=== PATIENT | male | born 1960 | race Caucasian/White ===

== ENCOUNTER 2018-10-04 15:56 | Emergency (ER) | payer OTHER ==
[2018-10-04 16:06] VITALS: TEMP 98.3
--- NOTE | 2018-10-04 17:08 | XR ---
EXAMINATION TYPE: XR chest 2V DATE OF EXAM: 10/04/2018 COMPARISON: NONE HISTORY: Cough and fever TECHNIQUE: Frontal and lateral views of the chest are obtained. FINDINGS: Heart and mediastinum are normal. Lungs are clear. Diaphragm is normal. Bony thorax appear s normal. IMPRESSION: Normal chest.
--- NOTE | 2018-10-04 17:31 | ED ---
URI HPI - General Chief Complaint: Upper Respiratory Infection Stated Complaint: Cough/fever Time Seen by Provider: 10/04/18 16:11 Source: patient Mode of arrival: ambulatory Limitations: no limitations - History of Present Illness Initial Comments: The patient is a 58-year-old male with past medical history of multiple sclerosis who presents to the emergency department with complaint of a cough and low-grade fever for the past 3-4 days. He has had contact with his grandson who has been suffering from an upper respiratory infection. The grandson recently saw his primary care physician was placed on an antibiotic. Patient presents and is concerned that he may need antibiotics as well. The cough is productive. He is producing tilley phlegm. Denies hemoptysis. Admits to chest wall pain when he is coughing in a bronchospastic cough. Denies shortness of breath. No pleuritic chest pain. No ripping or tearing sensation to his back. No history of coronary disease. Denies exertional dyspnea. There are no alleviating, precipitating or modifying factors - Related Data Home Medications Medication Instructions Recorded Confirmed Naproxen Sodium [Aleve] 440 mg PO Q12HR PRN 10/04/18 10/04/18 Previous Rx's Medication Instructions Recorded Albuterol Sulfate [Proair Hfa] 1 - 2 puff INHALATION Q4HR PRN #1 10/04/18 inhaler Azithromycin [Zithromax Z-pack] 250 mg PO DIRECTED #6 tab 10/04/18 predniSONE 20 mg PO BID 5 Days #10 tab 10/04/18 Allergies Allergy/AdvReac Type Severity Reaction Status Date / Time Penicillins Allergy Unknown Verified 10/04/18 16:34 Review of Systems ROS Statement: Those systems with pertinent positive or pertinent negative responses have been documented in the HPI. ROS Other: All systems not noted in ROS Statement are negative. Past Medical History Additional Past Medical History / Comment(s): multiple sclerosis History of Any Multi-Drug Resistant Organisms: None Reported Past Surgical History: No Surgical Hx Reported Past Psychological History: No Psychological Hx Reported Smoking Status: Never smoker Past Alcohol Use History: None Reported Past Drug Use History: None Reported General Exam Limitations: no limitations General appearance: alert, in no apparent distress Head exam: Present: atraumatic, normocephalic, normal inspection Eye exam: Present: normal appearance, PERRL, EOMI. Absent: scleral icterus, conjunctival injection, periorbital swelling ENT exam: Present: normal exam, mucous membranes moist Neck exam: Present: normal inspection. Absent: tenderness, meningismus, lymphadenopathy Respiratory exam: Present: normal lung sounds bilaterally. Absent: respiratory distress, wheezes, rales, rhonchi, stridor Cardiovascular Exam: Present: regular rate, normal rhythm, normal heart sounds. Absent: systolic murmur, diastolic murmur, rubs, gallop, clicks GI/Abdominal exam: Present: soft, normal bowel sounds. Absent: distended, tenderness, guarding, rebound, rigid Extremities exam: Present: normal inspection, full ROM, normal capillary refill. Absent: tenderness, pedal edema, joint swelling, calf tenderness Back exam: Present: normal inspection Neurological exam: Present: alert, oriented X3, CN II-XII intact Psychiatric exam: Present: normal affect, normal mood Skin exam: Present: warm, dry, intact, normal color. Absent: rash Course Vital Signs 10/04/18 10/04/18 16:03 18:09 Temperature 98.3 F Pulse Rate 83 78 Respiratory 16 18 Rate Blood Pressure 130/79 131/88 O2 Sat by Pulse 99 97 Oximetry Medical Decision Making - Medical Decision Making The patient was placed into room 19. He did discuss the diagnosis, differential diagnosis and treatment options. I did recommend an EKG and a chest x-ray. I did offer laboratory studies and influenza testing. The patient did opt for an EKG and chest x-ray. Upon return results I did discuss them with the patient. His EKG does demonstrate a normal sinus rhythm with an inverted T-wave in lead 3. He'll be discharged home and given a prescription for prednisone and an albuterol inhaler. I also provided the patient with a Z-João. He is to take the medications as directed. If he has fevers at home he is to take Tylenol. He needs to follow up with his primary care physician in 2 days for reevaluation. Should he have any new or worsening symptoms he should return to the emergency department. Patient was discharged home in stable condition - Differential Diagnosis Acute cough, upper respiratory infection, viral syndrome, bronchitis - EKG Data EKG shows normal: sinus rhythm Rate: normal When compared to previous EKG there are: previous EKG unavailable - Radiology Data Radiology results: report reviewed Chest x-ray demonstrates no acute findings Disposition Clinical Impression: Viral infection, Bronchitis, Upper respiratory infection Disposition: HOME SELF-CARE Condition: Good Instructions (If sedation given, give patient instructions): Upper Respiratory Infection (ED) Additional Instructions: Please follow up with your primary care physician in 2 days. Do not take any NSAIDs with the steroids. Return to the ED for any new or worsening symptoms. Your prescriptions were sent to [facility] Prescriptions: predniSONE 20 mg PO BID 5 Days #10 tab Albuterol Sulfate [Proair Hfa] 1 - 2 puff INHALATION Q4HR PRN #1 inhaler PRN Reason: difficulty in breathing Azithromycin [Zithromax Z-pack] 250 mg PO DIRECTED #6 tab Is patient prescribed a controlled substance at d/c from ED?: No Referrals: None,Stated [Primary Care Provider] - 1-2 days Time of Disposition: 17:31
[2018-10-04 18:10] VITALS: BP 131/88; PULSE 78; RESP 18
== END 2018-10-04 18:09 | disposition home or self-care (01) ==
LOC: EC 15:56
DX: J40 Bronchitis, not specified as acute or chronic (principal); J06.9 Acute upper respiratory infection, unspecified; G35 Multiple sclerosis; Z88.0 Allergy status to penicillin
CPT/HCPCS: 71046; 99283

== ENCOUNTER 2019-04-17 07:57 | Day surgery (SDC) | payer OTHER ==
[2019-04-13 15:14] VITALS: BMI 24.4
[~2019-04-17 07:57] MED LIST: LACTATED RINGERS 1,000 ML IV SCH; LIDOCAINE 1% 20 ML VIAL (10MG/ML) FOR IV START INTRADERMA PRN
[2019-04-17 08:26] VITALS: RESP 16; TEMP 98.4
[2019-04-17] MEDS ORDERED: PROPOFOL 10 MG/ML 20 ML VIAL IV ONE (09:04)
--- NOTE | 2019-04-17 09:07 | P.GSHP ---
History of Present Illness H&P Date: 04/17/19 Chief Complaint: Screening colonoscopy This a 59-year-old male who presents today for screening colonoscopy. Patient denies any significant GI complaints. Past Medical History Past Medical History: Neurologic Disorder Additional Past Medical History / Comment(s): multiple sclerosis, constipation, occasional arrythmia but no tx. for History of Any Multi-Drug Resistant Organisms: None Reported Past Surgical History: No Surgical Hx Reported Additional Past Surgical History / Comment(s): colonoscopy x2 Past Anesthesia/Blood Transfusion Reactions: No Reported Reaction Smoking Status: Never smoker - Past Family History Father Family Medical History: CVA/TIA Medications and Allergies Home Medications Medication Instructions Recorded Confirmed Type No Known Home Medications 04/13/19 04/13/19 History Allergies Allergy/AdvReac Type Severity Reaction Status Date / Time Penicillins Allergy Unknown Verified 04/13/19 14:58 Surgical - Exam Vital Signs Temp Pulse Resp BP Pulse Ox 98.4 F 66 16 132/81 98 04/17/19 08:22 04/17/19 08:22 04/17/19 08:22 04/17/19 08:22 04/17/19 08:22 - General well developed, well nourished, no distress - Eyes PERRL - ENT normal pinna - Neck no masses - Respiratory normal expansion - Cardiovascular Rhythm: regular - Abdomen Abdomen: soft, non tender Assessment and Plan Assessment: We'll perform screening colonoscopy.
--- NOTE | 2019-04-17 09:19 | P.OP ---
Date of Procedure: 04/17/19 Preoperative Diagnosis: Screening colonoscopy Postoperative Diagnosis: Normal colon Procedure(s) Performed: Colonoscopy Anesthesia: MAC Surgeon: Chucho Doll Pathology: none sent Condition: stable Disposition: PACU Description of Procedure: PROCEDURE: The patient was placed on the endoscopy table in the lateral position. Digital rectal examination was performed which revealed no abnormalities. The prostate was symmetrical without nodules. Flexible colonoscope was then placed in the patient's anus and passed throughout the entire colon. The ileocecal valve was visualized. The cecum, ascending, transverse, descending and sigmoid colon were normal. The rectum was normal as well. There were no masses, polyps or diverticula noted in the entire colon. SUMMARY OF FINDINGS: Normal colonoscopy.
[2019-04-17 09:40] VITALS: BP 134/71; PULSE 52
== END 2019-04-17 09:50 | disposition home or self-care (01) ==
LOC: ORWHC2ENDO 07:57
PROVIDERS: ATTEND Surgery
DX: Z12.11 Encounter for screening for malignant neoplasm of colon (principal); G35 Multiple sclerosis; Z88.0 Allergy status to penicillin; Z82.3 Family history of stroke
CPT/HCPCS: J2704; G0121

== ENCOUNTER 2023-02-14 12:34 | Emergency (ER) | payer OTHER ==
[2023-02-14 12:47] VITALS: TEMP 97.8
[2023-02-14 13:04] VITALS: RESP 16
--- NOTE | 2023-02-14 13:20 | ED ---
Skin/Abscess/FB HPI - General Chief complaint: Skin/Abscess/Foreign Body Stated complaint: lump - rt axillary Time Seen by Provider: 02/14/23 12:59 Source: patient, RN notes reviewed Mode of arrival: ambulatory Limitations: no limitations - History of Present Illness Initial comments: This is a 62-year-old male who presents to the emergency department for a lump near the right armpit. Patient states that his noticed this a couple of days ago, but he believes that it may have been there for longer. He is unsure if this is enlarging. States that it is not painful and it has not become red. Denies any fevers, chills, sore throat, cough, dyspnea, chest pain, palpitations, abdominal pain, nausea, vomiting, diarrhea, back pain, or he adaches. - Related Data Home Medications Medication Instructions Recorded Confirmed No Known Home Medications 04/13/19 04/13/19 Allergies Allergy/AdvReac Type Severity Reaction Status Date / Time Penicillins Allergy Unknown Verified 02/14/23 12:47 Review of Systems ROS Statement: Those systems with pertinent positive or pertinent negative responses have been documented in the HPI. ROS Other: All systems not noted in ROS Statement are negative. Past Medical History Additional Past Medical History / Comment(s): multiple sclerosis History of Any Multi-Drug Resistant Organisms: None Reported Past Surgical History: No Surgical Hx Reported Past Psychological History: No Psychological Hx Reported Smoking Status: Never smoker Past Alcohol Use History: None Reported Past Drug Use History: None Reported General Exam Limitations: no limitations General appearance: alert, in no apparent distress Head exam: Present: atraumatic, normocephalic, normal inspection Respiratory exam: Present: normal lung sounds bilaterally. Absent: respiratory distress, wheezes, rales, rhonchi, stridor Cardiovascular Exam: Present: regular rate, normal rhythm, normal heart sounds. Absent: systolic murmur, diastolic murmur, rubs, gallop, clicks Neurological exam: Present: alert, oriented X3, CN II-XII intact Psychiatric exam: Present: normal affect, normal mood Skin exam: Present: other (Approximately 5 cm palpable lump near the right axilla) Course Vital Signs 02/14/23 02/14/23 02/14/23 12:43 12:47 14:46 Temperature 97.8 F Pulse Rate 65 80 68 Respiratory 18 16 16 Rate Blood Pressure 145/96 140/85 125/68 O2 Sat by Pulse 98 98 98 Oximetry Medical Decision Making - Medical Decision Making This is a 62-year-old male who presents to the emergency department for a lump in the axillary region. Was pt. sent in by a medical professional or institution? @ -No Did you speak to anyone other than the patient for history? @ -No Did you review nursing and triage notes? @ -Yes, and I agree, it is accurate with regards to the patient's symptoms. Were old charts reviewed? @ -No Differential Diagnosis? @ -Differential Axillary Lump: Abscess, lipoma, malignancy, lymphadenopathy, this is not meant to be an all- inclusive list. EKG interpreted by me (3pts min.)? @ -Not obtained X-rays interpreted by me (1pt min.)? @ -Not obtained CT interpreted by me (1pt min.)? @ -Not obtained U/S interpreted by me (1pt. min.)? @ -Not interpreted by me What testing was considered but not performed? (CT, X-rays, U/S, labs)? Why? @ -None What meds were considered but not given? Why? @ -None Did you discuss the management of the patient with other professionals? @ -No Did you reconcile home meds? @ -No Was smoking cessation discussed for >3mins.? @ -No Was critical care preformed (if so, how long)? @ -No Were there social determinants of health that impacted care today? How? (Homelessness, low income, unemployed, alcoholism, drug addiction, transportation, low edu. Level, literacy, decrease access to med. care, care home, rehab)? @ -No Was there de-escalation of care discussed even if they declined? (Discuss DNR or withdrawal of care, Hospice)? @ -No What co-morbidities impacted this encounter? (DM, HTN, Smoking, COPD, CAD, Cancer, CVA, Hep., AIDS, mental health diagnosis, sleep apnea, morbid obesity)? @ -None Was patient admitted / discharged? @ -Discharged. On evaluation of the palpable lump, there were no external changes such as erythema and there was no overlying tenderness. Ultrasound of the lump was obtained. This was thought to be a lipoma, however liposarcoma could not be excluded and an MRI with contrast was recommended for further evaluation. This was discussed with the patient. States that he has a physical exam scheduled with his PCP for next month. I advised he contact his primary care provider's office tomorrow morning regarding these findings to see if they will order an MRI for him prior to that appointment. Undiagnosed new problem with uncertain prognosis? @ -None Drug Therapy requiring intensive monitoring for toxicity (Heparin, Nitro, Insulin, Cardizem)? @ -None Were any procedures done? @ -None Diagnosis/symptom? @ -Axillary lump Acute, or Chronic, or Acute on Chronic? @ -Acute Uncomplicated (without systemic symptoms) or Complicated (systemic symptoms)? @ -Uncomplicated Side effects of treatment? @ -None Exacerbation, Progression, or Severe Exacerbation] @ -Not applicable Poses a threat to life or bodily function? @ -This will depend on the underlying etiology of the mass. Return precautions reviewed in depth, the patient is instructed to return to the emergency department with any new, worsening, or concerning symptoms. Patient verbalized understanding. This case was discussed in detail with the attending ED physician, Dr. Chan. Presentation, findings, and treatment plan discussed in detail as well. - Radiology Data Radiology results: report reviewed, image reviewed Disposition Clinical Impression: Lump of axilla Disposition: HOME SELF-CARE Instructions (If sedation given, give patient instructions): Lipoma (ED), Soft Tissue Mass (ED) Additional Instructions: Return to the emergency department with any new, worsening, or concerning symptoms. Contact your primary care provider tomorrow morning. Let her know that you were seen in the emergency department for a lump in the arm pit. The ultrasound results will be sent to her. However, let the office know that this is most likely a lipoma, however a liposarcoma cannot be excluded and an MRI with contrast is needed to further evaluate this possibility. See if she is able to order this for you as soon as possible on an outpatient basis. Is patient prescribed a controlled substance at d/c from ED?: No Referrals: Reginald Lucero MD [Primary Care Provider] - 1-2 days
--- NOTE | 2023-02-14 14:07 | US ---
EXAMINATION TYPE: US axilla RT DATE OF EXAM: 02/14/2023 COMPARISON: NONE CLINICAL INDICATION: Male, 62 years old with history of Painless lump; Right axilla visible palpable. No redness. No pain. Soft palpable. TECHNIQUE: FINDINGS: Patients area of concern scanned. Hypoechoic heterogenous nonvascular area seen = 3.4 x 3 .0 x 1.2 cm. This is nonspecific. This is not typical for a lymph node. Lipoma is within the differe ntial. Recommend MRI with contrast to evaluate lipoma versus liposarcoma. IMPRESSION: 1. Nonspecific soft tissue density at the level of the palpable abnormality. This may be a lipoma. Re commend MRI with contrast to evaluate lipoma versus liposarcoma.
[2023-02-14 14:47] VITALS: BP 125/68; PULSE 68
== END 2023-02-14 14:47 | disposition home or self-care (01) ==
LOC: EC 12:34
DX: N63.31 Unspecified lump in axillary tail of the right breast (principal); Z88.0 Allergy status to penicillin
CPT/HCPCS: 99283

== ENCOUNTER → 2023-03-05 | Outpatient (CLI) | payer OTHER ==
--- NOTE | 2023-03-07 07:08 | MR ---
EXAMINATION TYPE: MR chest wo/w con DATE OF EXAM: 03/05/2023 10:20 AM CLINICAL INDICATION:Male, 62 years old with history of D17.9 BENIGN LIPOMATOUS NEOPLASM, UNSPECIFIED, Palpable lump right axilla. COMPARISON: Ultrasound 02/14/2023 Technique: multi planar, multi sequence imaging was obtained through the chest. IV Contrast: 8 cc Gadavist FINDINGS: Area of palpable abnormality with palpable marker demonstrates fatty tissue. No organizing fluid allen ection or mass. No enlarged lymph node. The lung parenchyma, mediastinum, and paraspinal regions included on the exam are grossly within norm al limits. No evidence of mediastinal adenopathy. IMPRESSION Area of palpable abnormality with palpable marker demonstrates fatty tissue. No organizing fluid allen ection or mass. No enlarged lymph node.
== END | disposition home or self-care (01) ==
LOC: RADMRIMAIN 09:04
PROVIDERS: ATTEND Family Medicine
DX: D17.9 Benign lipomatous neoplasm, unspecified (principal); R22.31 Localized swelling, mass and lump, right upper limb
CPT/HCPCS: 71552; A9585